=== PATIENT | male | born 1985 ===

== ENCOUNTER 2022-05-23 04:11 | Inpatient (IN) ==
[2022-05-23] MEDS ORDERED: HYDROmorphone 1 MG/1 ML SYRINGE IV STA (04:44)
[2022-05-23] MEDS ORDERED: ONDANSETRON 4 MG/2 ML VIAL IV STA (04:44)
[2022-05-23] MEDS ORDERED: SODIUM CHLORIDE 0.9% 1,000 ML IV ONE (04:44)
[2022-05-23 04:56] LABS: Basophils % 0.2 % (0.0-0.8); Eosinophils # 0.1 10*3/uL (0.0-0.87); Hematocrit 44.5 VOL% (42.0-52.0); Hemoglobin 14.9 GM/DL (14.0-18.0); Immature Granulocytes % 0.5 %; Immature Granulocytes Absolute 0.06 #; Lymphocytes # 1.2 10*3/uL (1.4-4.0); Lymphocytes % 10.1 % (21.2-54.2); Mean Corpuscular HGB Conc 33.5 GM/DL (32-36); Mean Corpuscular Volume 88.1 FL (87-102); Mean Platelet Volume 10.1 FL (9.6-12.0); Monocytes # 0.6 10*3/uL (0.11-0.8); Monocytes % 4.5 % (1.7-12.7); Neutrophils % 83.7 % (38.7-73.9); Platelet Count 216 T/CUMM (130-400); Red Blood Count 5.05 MC/CUMM (3.8-5.5); Red Cell Distribution Width 11.9 % (9.3-17.3); White Blood Count 12.2 T/CUMM (4-12)
[2022-05-23 05:16] LABS: Alanine Aminotransferase 54 U/L (16-61); Albumin 3.6 G/DL (3.4-5.0); Alkaline Phosphatase 58 U/L (45-117); Aspartate Amino Transferase 23 U/L (0-37); Blood Urea Nitrogen 15 MG/DL (7-18); Calcium 8.9 MG/DL (8.5-10.1); Carbon Dioxide 26 MMOL/L (21-32); Chloride 107 MMOL/L (98-107); Glucose 119 MG/DL (74-106); Osmolality,Calculated 276.7 MOS/KG (273-304); Potassium 3.9 MMOL/L (3.5-5.1); Sodium 138 MMOL/L (136-145); Total Protein 7.1 G/DL (6.4-8.2)
[2022-05-23] MEDS ORDERED: cefTRIAXone 1,000 MG in SODIUM CHLORIDE 0.9% 100 ML IV STA (05:31)
[2022-05-23] MEDS ORDERED: BICILLIN LA 1,200,000 UNIT/2 ML SYRINGE IM STA (05:31)
[2022-05-23] MEDS ORDERED: methylPREDNISolone SOD SUC 125 MG/2 ML VIAL IV STA (05:58)
[2022-05-23] MEDS ORDERED: diphenhydrAMINE 50 MG/1 ML VIAL IV STA (05:58)
[2022-05-23] MEDS ORDERED: FAMOTIDINE 20 MG/2 ML VIAL IV STA (05:59)
[2022-05-23 06:05] LABS: Sedimentation Rate-Westergren 2 MM/HR (0-15)
[2022-05-23 06:29] LABS: PT Patient Result 11.5 SECS (10.1-12.1)
[2022-05-23 11:11] LABS: Mucus,Urine Occasional /LPF (Occasional); RBC,Urine 1 /HPF (0-4)
[2022-05-23 11:12] LABS: Bilirubin,Urine Negative (Negative); Blood, Urine Negative (Negative); Glucose,Urine (UA) Negative (Negative); Ketones,Urine Negative (Negative); Nitrite,Urine Negative (Negative); Protein,Urine Negative (Negative); Urine Appearance Clear (Clear); Urine Color Yellow (Yellow); Urine Urobilinogen 0.2 eU/dL (<2.0)
[2022-05-23 12:01] LABS: Glucose,CSF 60 MG/DL (40-70)
[2022-05-23 12:36] LABS: Lymphocytes,CSF 84 %; Monocytes,CSF 16 %
[2022-05-23 12:37] LABS: Appearance,CSF Clear; White Blood Cell,CSF 372 C/CUMM
[2022-05-23 12:38] LABS: Red Blood Cell,CSF 46 C/CUMM
[2022-05-23] MEDS ORDERED: ACETAMINOPHEN 325 MG TABLET PO PRN (14:07)
[2022-05-23] MEDS ORDERED: GLUCAGON 1 MG VIAL IM PRN (14:07)
[2022-05-23] MEDS ORDERED: DEXTROSE 10% 250 ML BAG IV PRN (14:07)
[2022-05-23] MEDS ORDERED: ALBUTEROL/IPRATROPIUM 3 ML NEB RESP TX PRN (14:14)
[2022-05-23] MEDS ORDERED: cefTRIAXone 1,000 MG in SODIUM CHLORIDE 0.9% 100 ML IV ONE (14:15)
[2022-05-23] MEDS: ENOXAPARIN 40 MG/0.4 ML SYRINGE SUBCUT SCH (15:03)
[2022-05-23] MEDS: MORPHINE 2 MG/1 ML SYRINGE IV PRN ×2 (15:03→18:07)
[2022-05-23] MEDS: ONDANSETRON 4 MG/2 ML VIAL IV PRN (15:16)
[2022-05-23] MEDS: ACYCLOVIR IV SCH (16:59)
[2022-05-23] MEDS: SODIUM CHLORIDE 0.9% IV SCH (16:59)
[2022-05-23] MEDS: VANCOMYCIN INJ 1,500 MG in SODIUM CHLORIDE 0.9% 500 ML IV SCH (17:06)
[2022-05-23] MEDS: ZALEPLON 5 MG CAPSULE PO SCH (20:46)
[2022-05-23 23:00] LABS: Barbiturates Screen,Urine Negative (Negative); Benzodiazepines Screen,Urine Negative (Negative); Cannabinoid Screen,Urine Negative (Negative); Opiate Screen,Urine Positive (Negative); Phencyclidine Screen,Urine Negative (Negative)
[2022-05-24] MEDS: SODIUM CHLORIDE 0.9% IV SCH ×3 (00:18→15:50)
[2022-05-24] MEDS: ACYCLOVIR IV SCH ×3 (00:18→15:50)
[2022-05-24] MEDS: cefTRIAXone 2,000 MG in SODIUM CHLORIDE 0.9% 100 ML IV SCH ×2 (03:23→15:00)
[2022-05-24] MEDS: VANCOMYCIN INJ 1,500 MG in SODIUM CHLORIDE 0.9% 500 ML IV SCH ×2 (05:15→18:38)
[2022-05-24 06:51] LABS: Basophils % 0.1 % (0.0-0.8); Eosinophils # 0.1 10*3/uL (0.0-0.87); Eosinophils % 0.9 % (0.00-10.9); Hematocrit 40.1 VOL% (42.0-52.0); Hemoglobin 13.5 GM/DL (14.0-18.0); Immature Granulocytes % 0.5 %; Immature Granulocytes Absolute 0.07 #; Lymphocytes # 2.4 10*3/uL (1.4-4.0); Lymphocytes % 16.8 % (21.2-54.2); Mean Corpuscular HGB Conc 33.7 GM/DL (32-36); Mean Corpuscular Volume 89.5 FL (87-102); Mean Platelet Volume 10.5 FL (9.6-12.0); Monocytes # 1.1 10*3/uL (0.11-0.8); Monocytes % 7.5 % (1.7-12.7); Neutrophils % 74.2 % (38.7-73.9); Platelet Count 198 T/CUMM (130-400); Red Blood Count 4.48 MC/CUMM (3.8-5.5); Red Cell Distribution Width 11.9 % (9.3-17.3); White Blood Count 14.4 T/CUMM (4-12)
[2022-05-24 07:12] LABS: Calcium 8.6 MG/DL (8.5-10.1); Potassium 3.7 MMOL/L (3.5-5.1)
[2022-05-24] MEDS: BUTALBITAL/ACETAMIN/CAFFEINE 50-325-40 MG TABLET PO PRN ×2 (07:54→15:49)
[2022-05-24] MEDS: PANTOPRAZOLE 40 MG TABLET PO SCH (09:23)
[2022-05-24] MEDS: MORPHINE 2 MG/1 ML SYRINGE IV PRN ×3 (09:23→18:38)
[2022-05-24] MEDS: ENOXAPARIN 40 MG/0.4 ML SYRINGE SUBCUT SCH (15:00)
[2022-05-24] MEDS: ONDANSETRON 4 MG/2 ML VIAL IV PRN (18:37)
[2022-05-25] MEDS: ACYCLOVIR IV SCH ×2 (00:14→11:01)
[2022-05-25] MEDS: SODIUM CHLORIDE 0.9% IV SCH ×2 (00:14→11:01)
[2022-05-25] MEDS: ZALEPLON 5 MG CAPSULE PO SCH ×2 (01:35→23:34)
[2022-05-25] MEDS: cefTRIAXone 2,000 MG in SODIUM CHLORIDE 0.9% 100 ML IV SCH ×2 (03:43→15:31)
[2022-05-25 04:40] LABS: Basophils % 0.3 % (0.0-0.8); Eosinophils # 0.2 10*3/uL (0.0-0.87); Eosinophils % 1.5 % (0.00-10.9); Immature Granulocytes % 0.3 %; Immature Granulocytes Absolute 0.03 #; Lymphocytes # 2.4 10*3/uL (1.4-4.0); Mean Corpuscular Volume 88.3 FL (87-102); Mean Platelet Volume 10.1 FL (9.6-12.0); Monocytes # 0.7 10*3/uL (0.11-0.8); Monocytes % 6.1 % (1.7-12.7); Neutrophils % 69.8 % (38.7-73.9); Platelet Count 195 T/CUMM (130-400); Red Blood Count 4.53 MC/CUMM (3.8-5.5)
[2022-05-25 05:12] LABS: Calcium 8.4 MG/DL (8.5-10.1); Osmolality,Calculated 279.4 MOS/KG (273-304); Potassium 3.3 MMOL/L (3.5-5.1)
[2022-05-25] MEDS: VANCOMYCIN INJ 1,500 MG in SODIUM CHLORIDE 0.9% 500 ML IV SCH ×2 (05:39→18:25)
[2022-05-25] MEDS: MORPHINE 2 MG/1 ML SYRINGE IV PRN ×2 (08:59→15:36)
[2022-05-25] MEDS: ONDANSETRON 4 MG/2 ML VIAL IV PRN (08:59)
[2022-05-25] MEDS ORDERED: POTASSIUM CHLORIDE 20 MEQ TABLET PO ONE (09:00)
[2022-05-25] MEDS: PANTOPRAZOLE 40 MG TABLET PO SCH (09:04)
[2022-05-25 12:52] LABS: HIV Antigen/Antibody Result Nonreactive (Nonreactive)
[2022-05-25] MEDS: ENOXAPARIN 40 MG/0.4 ML SYRINGE SUBCUT SCH (15:31)
[2022-05-25] MEDS: FAMOTIDINE 20 MG/2 ML VIAL IV SCH (18:36)
[2022-05-26] MEDS: cefTRIAXone 2,000 MG in SODIUM CHLORIDE 0.9% 100 ML IV SCH ×2 (02:30→16:00)
[2022-05-26] MEDS: VANCOMYCIN INJ 1,500 MG in SODIUM CHLORIDE 0.9% 500 ML IV SCH ×3 (03:57→18:00)
[2022-05-26 04:11] LABS: Basophils % 0.3 % (0.0-0.8); Eosinophils # 0.2 10*3/uL (0.0-0.87); Eosinophils % 2.8 % (0.00-10.9); Hematocrit 41.1 VOL% (42.0-52.0); Immature Granulocytes % 0.6 %; Immature Granulocytes Absolute 0.05 #; Lymphocytes # 2.3 10*3/uL (1.4-4.0); Lymphocytes % 26.3 % (21.2-54.2); Mean Corpuscular HGB Conc 34.1 GM/DL (32-36); Mean Platelet Volume 10.3 FL (9.6-12.0); Monocytes # 0.8 10*3/uL (0.11-0.8); Monocytes % 9.2 % (1.7-12.7); Neutrophils % 60.8 % (38.7-73.9); Platelet Count 204 T/CUMM (130-400); Red Blood Count 4.67 MC/CUMM (3.8-5.5); Red Cell Distribution Width 11.9 % (9.3-17.3); White Blood Count 8.6 T/CUMM (4-12)
[2022-05-26 04:31] LABS: Calcium 8.7 MG/DL (8.5-10.1); Osmolality,Calculated 281.1 MOS/KG (273-304); Potassium 3.5 MMOL/L (3.5-5.1)
[2022-05-26] MEDS: FAMOTIDINE 20 MG/2 ML VIAL IV SCH ×2 (06:03→17:34)
[2022-05-26] MEDS ORDERED: DIAZEPAM 5 MG TABLET PO ONE (07:57)
[2022-05-26] MEDS: PANTOPRAZOLE 40 MG TABLET PO SCH (08:30)
[2022-05-26] MEDS: MORPHINE 2 MG/1 ML SYRINGE IV PRN ×2 (12:08→16:51)
[2022-05-26] MEDS: ONDANSETRON 4 MG/2 ML VIAL IV PRN (12:09)
[2022-05-26 12:19] LABS: Glucose,CSF 43 MG/DL (40-70)
[2022-05-26 12:32] LABS: Lymphocytes,CSF 87 %; Monocytes,CSF 11 %; Neutrophils,CSF 2 %
[2022-05-26 12:33] LABS: Appearance,CSF Clear; Red Blood Cell,CSF 3 C/CUMM; White Blood Cell,CSF 444 C/CUMM
[2022-05-26 16:29] LABS: CSF Crypto neoforman/gatti PCR Negative (Negative); CSF Cytomegalovirus PCR Negative (Negative); CSF Enterovirus PCR Negative (Negative); CSF Escherichia coli K1 PCR Negative (Negative); CSF Haemophilus influenzae PCR Negative (Negative); CSF Herpes Simplex Virus 1 PCR Negative (Negative); CSF Herpes Simplex Virus 2 PCR Negative (Negative); CSF Human Herpes Virus 6 PCR Negative (Negative); CSF Human Parechovirus PCR Negative (Negative); CSF Listeria monocytogenes PCR Negative (Negative); CSF Neisseria meningitidis PCR Negative (Negative); CSF Streptococcus agalacti PCR Negative (Negative); CSF Streptococcus pneumon PCR Negative (Negative); Specimen source CEREBROSPINAL FLUID
[2022-05-26 16:48] LABS: CSF Varicella Zoster Virus PCR Positive (Negative)
[2022-05-26] MEDS: ACYCLOVIR INJ 700 MG in SODIUM CHLORIDE 0.9% 250 ML IV SCH (17:00)
[2022-05-26 20:16] LABS: M. Tuberculosis PCR Result Negative (Negative); M. Tuberculosis PCR Source CSF
[2022-05-26] MEDS: ENOXAPARIN 40 MG/0.4 ML SYRINGE SUBCUT SCH (22:01)
[2022-05-26] MEDS: ZALEPLON 5 MG CAPSULE PO SCH (22:03)
[2022-05-27] MEDS: ACYCLOVIR INJ 700 MG in SODIUM CHLORIDE 0.9% 250 ML IV SCH ×3 (00:49→16:14)
[2022-05-27] MEDS: VANCOMYCIN INJ 1,500 MG in SODIUM CHLORIDE 0.9% 500 ML IV SCH ×3 (02:10→17:38)
[2022-05-27] MEDS: cefTRIAXone 2,000 MG in SODIUM CHLORIDE 0.9% 100 ML IV SCH ×2 (04:26→15:37)
[2022-05-27 05:42] LABS: Basophils # 0.1 10*3/uL (0.0-0.2); Basophils % 0.6 % (0.0-0.8); Eosinophils # 0.3 10*3/uL (0.0-0.87); Eosinophils % 3.9 % (0.00-10.9); Hematocrit 41.6 VOL% (42.0-52.0); Hemoglobin 13.9 GM/DL (14.0-18.0); Immature Granulocytes % 0.8 %; Immature Granulocytes Absolute 0.07 #; Lymphocytes % 23.2 % (21.2-54.2); Mean Corpuscular HGB Conc 33.4 GM/DL (32-36); Mean Corpuscular Volume 88.1 FL (87-102); Mean Platelet Volume 9.9 FL (9.6-12.0); Monocytes # 0.8 10*3/uL (0.11-0.8); Neutrophils % 62.5 % (38.7-73.9); Platelet Count 208 T/CUMM (130-400); Red Blood Count 4.72 MC/CUMM (3.8-5.5); Red Cell Distribution Width 11.9 % (9.3-17.3); White Blood Count 8.5 T/CUMM (4-12)
[2022-05-27 05:58] LABS: Calcium 8.4 MG/DL (8.5-10.1); Osmolality,Calculated 281.3 MOS/KG (273-304); Potassium 3.8 MMOL/L (3.5-5.1)
[2022-05-27] MEDS: FAMOTIDINE 20 MG/2 ML VIAL IV SCH ×2 (06:29→17:39)
[2022-05-27] MEDS: PANTOPRAZOLE 40 MG TABLET PO SCH (09:40)
[2022-05-27] MEDS: MORPHINE 2 MG/1 ML SYRINGE IV PRN ×2 (11:28→17:39)
[2022-05-27] MEDS: ONDANSETRON 4 MG/2 ML VIAL IV PRN (11:28)
[2022-05-27] MEDS ORDERED: POLYETHYLENE GLYCOL POWDER 17 GM PACK PO PRN (11:53)
[2022-05-27] MEDS: ZALEPLON 5 MG CAPSULE PO SCH (20:05)
[2022-05-27] MEDS: ENOXAPARIN 40 MG/0.4 ML SYRINGE SUBCUT SCH (20:06)
[2022-05-27 20:48] VITALS: BP 141/80
[2022-05-28 18:46] LABS: Adenovirus PCR Negative (Negative); Specimen Source CSF
[2022-05-28 18:48] LABS: Enterovirus PCR Source CSF
[2022-05-29 11:36] LABS: CMV PCR Source CSF
[2022-05-29 13:01] LABS: West Nile Virus Ab, IgG, CSF Negative (Negative); West Nile Virus Ab, IgM, CSF Negative (Negative)
[2022-05-29 14:06] LABS: Epstein-Barr Virus Result Negative (Negative); Epstein-Barr Virus Source CSF
[2022-05-30 15:57] LABS: Specimen Source CSF
== END 2022-05-28 01:45 | disposition hospice, home (50) | DRG 76 ==
LOC: N.ED 04:11 → N.5E 14:07
PROVIDERS: ADMIT Internal Medicine; ATTEND Internal Medicine